=== PATIENT | female | born 1950 | race Hispanic/Latino ===

== ENCOUNTER 2021-06-16 10:09 | Outpatient (CLI) | payer OTHER | END 2021-06-16 10:10 | disposition home or self-care (01) | LOC: CTENTCT 10:09 | PROVIDERS: ATTEND Student in an Organized Health Care Education/Training Program | DX: R68.89 Other general symptoms and signs (principal) | CPT/HCPCS: 70486 ==

== ENCOUNTER 2021-09-14 13:41 | Outpatient (CLI) | payer OTHER | END 2021-09-14 13:42 | disposition home or self-care (01) | LOC: MRI 13:41 | PROVIDERS: ATTEND Student in an Organized Health Care Education/Training Program | DX: M25.551 Pain in right hip (principal); M54.41 Lumbago with sciatica, right side; M54.42 Lumbago with sciatica, left side; S72.051A Unspecified fracture of head of right femur, initial encounter for closed fracture; N89.8 Other specified noninflammatory disorders of vagina; M16.0 Bilateral primary osteoarthritis of hip; S73.102A Unspecified sprain of left hip, initial encounter; S73.101A Unspecified sprain of right hip, initial encounter | CPT/HCPCS: 72195 ==